=== PATIENT | female | born 1990 | race Caucasian/White ===

== ENCOUNTER → 2019-11-05 23:52 | Observation (INO) | END | disposition home or self-care (01) | LOC: 1NENULAB | PROVIDERS: ADMIT Obstetrics & Gynecology; ATTEND Obstetrics & Gynecology ==

== ENCOUNTER 2019-11-18 15:25 | Observation (INO) ==
[2019-11-18 16:13] LABS: Basophils % 0.3 %; Eosinophils % 0.5 %; Hematocrit 33.2 % (35.3-44.9); Hemoglobin 10.7 g/dL (11.5-15.4); Immature Granulocytes % 0.7 % (0-4); Lymphocytes # 1.5 K/mcL (0.6-4.6); Lymphocytes % 20.1 %; Mean Corpuscular HGB Conc 32.2 g/dL (31.6-35.5); Mean Corpuscular Volume 83.8 fL (83.0-100.0); Mean Platelet Volume 9.8 fL (9.4-12.4); Monocytes # 0.4 K/mcL (0.0-1.3); Monocytes % 5.6 %; Neutrophils # 5.5 K/mcL (1.6-8.9); Platelet Count 212 K/mcL (140-400); Red Blood Count 3.96 M/mcL (3.82-4.97); Red Cell Distribution Width 15.3 % (11.5-14.5); Segmented Neutrophils % 72.8 %; White Blood Count 7.6 K/mcL (4.3-11.1)
[2019-11-18 16:20] LABS: Protein/Creatinine Ratio,Urine 0.15 mg/mg (0.00-0.20)
[2019-11-18 16:43] LABS: Alanine Aminotransferase 12 Units/L (7-52); Aspartate Amino Transferase 14 Units/L (13-39); BUN/Creatinine Ratio 13 (6-26); Blood Urea Nitrogen 6 mg/dL (6-20); Lactate Dehydrogenase 124 Units/L (140-271); Uric Acid 3.3 mg/dL (2.3-7.6); eGFR For African Americans > 60 (> 60); eGFR For Non-African Americans > 60 (> 60)
== END 2019-11-18 18:00 | disposition home or self-care (01) ==
LOC: 1NENULAB
PROVIDERS: ADMIT Obstetrics & Gynecology; ATTEND Obstetrics & Gynecology

== ENCOUNTER 2019-12-03 05:47 | Inpatient (IN) ==
[2019-12-03] MEDS ORDERED: Azithromycin 500 MG in 0.9 % Sodium Chloride 250 ML IVPB ONE (05:52)
[2019-12-03] MEDS ORDERED: Famotidine 20 MG/2 ML VIAL IVP PRN (05:52)
[2019-12-03] MEDS ORDERED: Metoclopramide 10 MG/2 ML VIAL IVP PRN ×2 (05:52→12:29)
[2019-12-03] MEDS ORDERED: Naloxone 0.4 MG/ML INJ IVP PRN (05:52)
[2019-12-03] MEDS ORDERED: Ringers Solution, Lactated 1,000 ML IVC SCH (06:00)
[2019-12-03] MEDS ORDERED: *HR* FentaNYL (PF) 100 MCG/2 ML VIAL ONE (06:17)
[2019-12-03] MEDS ORDERED: *HR* Oxytocin 10 UNIT/ML VIAL IM ONE ×2 (06:17→08:26)
[2019-12-03] MEDS ORDERED: *HR* Morphine Sulfate/PF 10 MG/10 ML AMPUL ONE (06:17)
[2019-12-03 06:29] LABS: Basophils % 0.3 %; Eosinophils # 0.1 K/mcL (0.0-0.6); Eosinophils % 0.7 %; Hemoglobin 10.5 g/dL (11.5-15.4); Immature Granulocytes % 0.6 % (0-4); Lymphocytes # 1.7 K/mcL (0.6-4.6); Lymphocytes % 25.1 %; Mean Corpuscular HGB Conc 31.8 g/dL (31.6-35.5); Mean Corpuscular Hemoglobin 26.3 pg (28.0-33.3); Mean Corpuscular Volume 82.5 fL (83.0-100.0); Mean Platelet Volume 9.6 fL (9.4-12.4); Monocytes # 0.5 K/mcL (0.0-1.3); Monocytes % 6.8 %; Neutrophils # 4.6 K/mcL (1.6-8.9); Nucleated Red Blood Cells 0.4 /100 WBC (0); Platelet Count 219 K/mcL (140-400); Red Cell Distribution Width 15.9 % (11.5-14.5); Segmented Neutrophils % 66.5 %; White Blood Count 6.9 K/mcL (4.3-11.1)
[2019-12-03 06:34] LABS: Amphetamine Screen,Urine Negative ng/mL (Cutoff=1000); Barbiturate Screen,Urine Negative ng/mL (Cutoff=200)
[2019-12-03 06:35] LABS: Benzodiazepines Screen,Urine Negative ng/mL (Cutoff=300); Cannabinoid Screen,Urine Negative ng/mL (Cutoff = 50); Cocaine Screen,Urine Negative ng/mL (Cutoff= 300); Opiate Screen,Urine Negative ng/mL (Cutoff=300); Phencyclidine Screen,Urine Negative ng/mL (Cutoff=25)
[2019-12-03] MEDS ORDERED: CeFAZolin 2,000 MG/50 ML BAG IVPB ONE (07:10)
[2019-12-03] MEDS ORDERED: EPHEDrine 50 MG/ML VIAL ONE (07:33)
[2019-12-03] MEDS ORDERED: Ondansetron 4 MG/2 ML VIAL ONE (07:50)
[2019-12-03] MEDS ORDERED: Dexamethasone 4 MG/ML VIAL ONE (07:50)
[2019-12-03] MEDS ORDERED: EPINEPHrine 1 MG/ML VIAL ONE (07:51)
[2019-12-03] MEDS ORDERED: Ketorolac 30 MG/ML VIAL ONE (08:51)
[2019-12-03] MEDS ORDERED: *HR* HYDROMORPHONE 2 MG/ML VIAL ONE (10:29)
[2019-12-03] MEDS ORDERED: Oxytocin 20 units/ LR 1000 mL 20 UNIT/1,000 ML BAG IVC ONE (11:12)
[2019-12-03] MEDS ORDERED: Ondansetron 4 MG/2 ML VIAL IVP PRN (12:29)
[2019-12-03] MEDS ORDERED: Oxytocin 20 units/ LR 1000 mL 20 UNIT/1,000 ML BAG IVC SCH (12:29)
[2019-12-03] MEDS ORDERED: Simethicone 80 MG TAB.CHEW PO PRN (12:29)
[2019-12-03] MEDS: Acetaminophen 325 MG TABLET PO SCH ×2 (13:38→20:22)
[2019-12-03] MEDS: Ibuprofen 600 MG TABLET PO PRN ×2 (13:38→20:21)
[2019-12-04] MEDS: Ibuprofen 600 MG TABLET PO PRN ×4 (02:32→20:44)
[2019-12-04] MEDS: Acetaminophen 325 MG TABLET PO SCH ×3 (02:32→14:30)
[2019-12-04 04:39] LABS: Basophils % 0.4 %; Eosinophils % 0.3 %; Hematocrit 32.3 % (35.3-44.9); Immature Granulocytes % 0.6 % (0-4); Lymphocytes % 20.3 %; Mean Corpuscular Hemoglobin 26.5 pg (28.0-33.3); Mean Corpuscular Volume 85.7 fL (83.0-100.0); Mean Platelet Volume 9.9 fL (9.4-12.4); Monocytes # 0.5 K/mcL (0.0-1.3); Monocytes % 5.4 %; Neutrophils # 7.2 K/mcL (1.6-8.9); Platelet Count 190 K/mcL (140-400); Red Blood Count 3.77 M/mcL (3.82-4.97); Red Cell Distribution Width 16.2 % (11.5-14.5); White Blood Count 9.8 K/mcL (4.3-11.1)
[2019-12-04] MEDS: Prenatal Vit/FA 1 EACH TABLET PO SCH (08:03)
[2019-12-04] MEDS ORDERED: IRON PO SCH (09:00)
[2019-12-04] MEDS ORDERED: [UNRECOGNIZED DRUG - OTHER] PO SCH (09:00)
[2019-12-04] MEDS ORDERED: FOLIC PO SCH (09:00)
[2019-12-04] MEDS ORDERED: Ondansetron ODT 4 MG TAB.RAPDIS SL PRN (20:12)
[2019-12-04] MEDS: *HR* OxyCODONE/APAP 5/325 TABLET PO PRN (20:44)
[2019-12-05] MEDS: Acetaminophen 325 MG TABLET PO SCH (01:47)
[2019-12-05] MEDS: Ibuprofen 600 MG TABLET PO PRN (04:59)
[2019-12-05] MEDS: *HR* OxyCODONE/APAP 5/325 TABLET PO PRN ×2 (04:59→08:35)
[2019-12-05 08:05] VITALS: BP 107/68
[2019-12-05] MEDS: Prenatal Vit/FA 1 EACH TABLET PO SCH (08:35)
== END 2019-12-05 13:00 | disposition home or self-care (01) | DRG 540 ==
LOC: 1NENULAB 05:47 → 1NENUOBS 12:13